=== PATIENT | male | born 1985 | race African-American/Black ===

== ENCOUNTER 2017-09-29 08:01 | Emergency (ER) | payer OTHER ==
[2017-09-29] MEDS ORDERED: ASPIRIN 81 MG TABLET, CHEWABLE PO ONE (08:29)
[2017-09-29 08:54] LABS: ABSOLUTE EOSINOPHILS # (AUTO) 0.1 10^3/uL (0.0-0.6); ABSOLUTE LYMPHOCYTES (AUTO) 1.2 10^3/uL (0.5-4.7); ABSOLUTE MONOCYTES (AUTO) 0.4 10^3/uL (0.1-1.4); ABSOLUTE NEUT (AUTO) 2.5 10^3/uL (1.7-8.2); BASOPHILS % (AUTO) 0.8 % (0-2); EOSINOPHILS % (AUTO) 1.7 % (0-6); HEMATOCRIT 46.4 % (37.9-51.0); HEMOGLOBIN 15.9 g/dL (13.5-17.0); LYMPHOCYTES % (AUTO) 29.3 % (13-45); MEAN CORPUSCULAR HEMOGLOBIN 28.9 pg (27.0-33.4); MEAN CORPUSCULAR HGB CONC 34.2 g/dL (32.0-36.0); MEAN CORPUSCULAR VOLUME 85 fl (80-97); MONOCYTES % (AUTO) 10.5 % (3-13); PLATELET COUNT 209 10^3/uL (150-450); RED BLOOD COUNT 5.48 10^6/uL (4.35-5.55); SEGMENTED NEUTROPHILS % (AUTO) 57.7 % (42-78); TOTAL CELLS COUNTED % (AUTO) 100 %; WHITE BLOOD COUNT 4.2 10^3/uL (4.0-10.5)
[2017-09-29] MEDS ORDERED: KETOROLAC TROMETHAMINE INJ/PF 30 MG/1 ML SDV IV ONE (09:03)
[2017-09-29 09:09] LABS: ALANINE AMINOTRANSFERASE 43 U/L (21-72); ALBUMIN 4.2 g/dL (3.5-5.0); ALKALINE PHOSPHATASE 51 U/L (38-126); ANION GAP 11 (5-19); ASPARTATE AMINO TRANSFERASE 45 U/L (17-59); BILIRUBIN,DIRECT 0.3 mg/dL (0.0-0.4); BILIRUBIN,TOTAL 0.9 mg/dL (0.2-1.3); BLOOD UREA NITROGEN 19 mg/dL (7-20); CALCIUM 9.7 mg/dL (8.4-10.2); CARBON DIOXIDE 23 mmol/L (22-30); CHLORIDE 107 mmol/L (98-107); CREATINE KINASE 348 U/L (55-170); GLUCOSE 85 mg/dL (75-110); POTASSIUM 4.2 mmol/L (3.6-5.0); SODIUM 141.1 mmol/L (137-145); TOTAL PROTEIN 7.2 g/dL (6.3-8.2)
--- NOTE | 2017-09-29 09:10 | ER Document Report ---
ED General - General Chief Complaint: Chest Wall Pain Stated Complaint: CHEST PAIN Time Seen by Provider: 09/29/17 08:31 Notes: 32-year-old male to emergency department chief complaint of chest pain. Patient states that he has had some nausea and intermittent chills. Pain in the sternal region. Hurts to take a deep breath. No significant shortness of breath. No significant abdominal pain. Does have some history of PTSD and this seems to be making it worse. No thoughts of harm to self or other. Does smoke cigarettes but no drug use. TRAVEL OUTSIDE OF THE [place] IN LAST 30 DAYS: No - HPI Onset: Yesterday Onset/Duration: Gradual, Constant Quality of pain: Achy Severity: Moderate Pain Level: 3 - Related Data Allergies/Adverse Reactions: No Known Allergies Allergy (Unverified 09/29/17 08:06) Past Medical History - General Information source: Patient - Social History Smoking Status: Current Every Day Smoker Cigarette use (# per day): Yes Frequency of alcohol use: None Drug Abuse: None Lives with: Family Family History: Reviewed & Not Pertinent - Past Medical History Cardiac Medical History: Reports: Hx Hypertension Review of Systems - Review of Systems Constitutional: denies: Fever, Malaise, Weakness EENT: denies: Eye pain, Nose pain, Mouth pain Cardiovascular: Chest pain. denies: Palpitations, Heart racing, Orthopnea, Dyspnea, Edema Respiratory: Hurts to breathe. denies: Cough, Short of breath, Wheezing Gastrointestinal: Nausea. denies: Abdominal pain, Vomiting Genitourinary: denies: Burning, Dysuria, Discharge Musculoskeletal: denies: Back pain, Gout, Joint pain, Muscle pain Skin: denies: Dryness, Lesions, Lumps, Rash Hematologic/Lymphatic: denies: Anemia, Blood clots, Easy bleeding, Easy bruising Neurological/Psychological: denies: Confusion, Weakness, Numbness Physical Exam - Vital signs Vitals: Resp BP Pulse Ox 17 122/77 99 09/29/17 08:08 09/29/17 08:08 09/29/17 08:08 Interpretation: Normal - General General appearance: Appears well, Alert - HEENT Head: Normocephalic, Atraumatic Eyes: Normal Pupils: PERRL - Respiratory Respiratory status: No respiratory distress Chest status: Nontender Breath sounds: Normal Chest palpation: Normal - Cardiovascular Rhythm: Regular Heart sounds: Normal auscultation Murmur: No - Abdominal Inspection: Normal Distension: No distension Bowel sounds: Normal Tenderness: Nontender Organomegaly: No organomegaly - Back Back: Normal, Nontender - Extremities General upper extremity: Normal inspection, Nontender, Normal color, Normal ROM , Normal temperature General lower extremity: Normal inspection, Nontender, Normal color, Normal ROM , Normal temperature, Normal weight bearing. No: [place]'s sign - Neurological Neuro grossly intact: Yes Cognition: Normal Orientation: AAOx4 [place] Coma Scale Eye Opening: Spontaneous Nicole Coma Scale Verbal: Oriented Nicole Coma Scale Motor: Obeys Commands Nicole Coma Scale Total: 15 Speech: Normal Motor strength normal: LUE, RUE, LLE, RLE Sensory: Normal - Psychological Associated symptoms: Normal affect, Normal mood - Skin Skin Temperature: Warm Skin Moisture: Dry Skin Color: Normal Course - Re-evaluation Re-evalutation: 09/29/17 10:02 At this time patient's describing more of a costochondritis symptoms with pain along the costochondral margin of the sternal border which is mildly reproducible with palpation. EKG normal. Healthy normal-appearing 32-year-old male. Will order some Toradol. Chest x-ray EKG basic labs and reassess. - Vital Signs Vital signs: Temp Pulse Resp BP Pulse Ox 98.0 F 57 L 16 125/75 99 09/29/17 08:19 09/29/17 08:19 09/29/17 08:19 09/29/17 08:19 09/29/17 08:29 - Laboratory Result Diagrams: 09/29/17 08:43 09/29/17 08:43 Laboratory results interpreted by me: 09/29/17 08:43 Creatine Kinase 348 H Discharge - Discharge Clinical Impression: Costochondritis, acute Condition: Good Disposition: HOME, SELF-CARE Instructions: Anti-Inflammatory Medication ([facility]), Chest Wall Pain ([facility]), Costochondritis ([facility]) Additional Instructions: At this time it appears that you may have some inflammation of the ribs where they meet the sternum. This is called costochondritis. It can be caused by any number of things. The treatment is symptomatic treatment with some anti- inflammatories. We advised that he stop smoking. If you begin to develop shortness of breath or worsening symptoms please return for repeat evaluation. Prescriptions: Ketorolac Tromethamine [Toradol 10 mg Tablet] 10 mg PO TID PRN 5 Days #15 tablet PRN Reason: Forms: Return to Work
--- NOTE | 2017-09-29 09:10 | RADIOLOGY REPORT (SQ) ---
EXAM DESCRIPTION: CHEST SINGLE VIEW COMPLETED DATE/TIME: 09/29/2017 8:51 am REASON FOR STUDY: cp COMPARISON: None. EXAM PARAMETERS: NUMBER OF VIEWS: One view. TECHNIQUE: Single frontal radiographic view of the chest acquired. RADIATION DOSE: NA LIMITATIONS: None. FINDINGS: LUNGS AND PLEURA: No opacities, masses or pneumothorax. No pleural effusion. MEDIASTINUM AND HILAR STRUCTURES: No masses. Contour normal. HEART AND VASCULAR STRUCTURES: Heart normal in size. Normal vasculature. BONES: No acute findings. HARDWARE: None in the chest. OTHER: No other significant finding. IMPRESSION: NO ACUTE RADIOGRAPHIC FINDING IN THE CHEST. TECHNICAL DOCUMENTATION: JOB ID: [id number] [employer]- All Rights Reserved Reading location - IP/workstation name: [email or web address]
[2017-09-29 09:33] LABS: TROPONIN I < 0.012 ng/mL
[2017-09-29 11:16] VITALS: BP 123/87
--- NOTE | 2017-09-29 15:09 | EKG REPORT ---
SEVERITY:- NORMAL ECG - SINUS RHYTHM : Confirmed by: Cathie Ken MD 29-Sep-2017 15:08:54
== END 2017-09-29 11:31 | disposition home or self-care (01) ==
LOC: ER 08:01
DX: M94.0 Chondrocostal junction syndrome [Tietze] (principal); R07.89 Other chest pain; R11.0 Nausea; R68.83 Chills (without fever); F17.210 Nicotine dependence, cigarettes, uncomplicated; I10 Essential (primary) hypertension
CPT/HCPCS: 93005; 99284; 96374; 36415; 82553; 82550; 85025; 80053; 84484; 71045; 93010; J1885